=== PATIENT | female | born 1945 | race Two or more races ===

== ENCOUNTER 2017-06-30 08:21 | Day surgery (SDC) | payer MEDICARE, BC ==
[2017-06-15 10:11] VITALS: BMI 25.6
[2017-06-30] MEDS ORDERED: Midazolam 2 MG/2 ML VIAL ONE ×2 (09:58→10:01)
[2017-06-30] MEDS ORDERED: Propofol 10 mg/ml Inj (20 ML) ONE (09:58)
[2017-06-30] MEDS ORDERED: Lidocaine Hydrochloride 5 ML INJ ONE (10:00)
[2017-06-30] MEDS ORDERED: Neostigmine Methylsulfate 3mg/3ml Syringe IV ONE (10:14)
[2017-06-30] MEDS ORDERED: HYDROmorphone 0.5 mg/0.5 ml ISec IVP PRN (10:42)
[2017-06-30 12:32] VITALS: O2SAT 100
--- NOTE | 2017-06-30 12:36 | PCM.SURG1 ---
Surgeon's Initial Post Op Note - Surgeon's Notes Surgeon: Alma Mcnulty MD Supervisor Laboratory: none Type of Anesthesia: General LMA Pre-Operative Diagnosis: Post menopausal bleeding, history of bresat cancner Operative Findings: small anteverted uterus, 6cm, bilaterl ostia visluzed, small ciruclar type fere floatsing lesion removed, cervical stenosis, Post-Operative Diagnosis: same as above Operation Performed: Operative hyseroscopy, fractional diation and currettage Specimen/Specimens Removed: endocervical currettings, endometrial currettins, endometrial lesion Estimated Blood Loss: EBL {In ML}: 5 Blood Products Given: N/A Drains Used: No Drains Post-Op Condition: Good Date of Surgery/Procedure: 06/30/17 Time of Surgery/Procedure: 11:00
[2017-06-30 12:48] VITALS: BP 137/90; PULSE 63; RESP 18; TEMP 97
--- NOTE | 2017-07-01 02:57 | OP ---
PROCEDURE DATE: 06/30/2017 SURGEON: Alma Mcnulty MD FAMILY SERVICE ASSISTANT: None. TYPE OF ANESTHESIA: General LMA. PREOPERATIVE DIAGNOSIS: Postmenopausal bleeding, history of breast cancer. POSTOPERATIVE DIAGNOSIS: Postmenopausal bleeding, history of breast cancer. OPERATIVE FINDINGS: bilateral ostia visualized, . OPERATION PERFORMED: Operative hysteroscopy with fractional dilation and curettage. SPECIMENS: Endocervical curettings, endometrial curettings, and endometrial lesion. ESTIMATED BLOOD LOSS: 500 mL. BLOOD PRODUCTS: None. COMPLICATIONS: None. DESCRIPTION OF PROCEDURE: The patient was taken to the operating room where she was given general anesthesia and once it was found to be adequate, she was placed on the operating room table in a dorsal supine position with legs supported using stirrups. The patient was then prepped and draped in the usual sterile fashion. A time-out was confirmed correct patient and correct procedure. Endocervical curettings were obtained with a Kevorkian curette through the cervical stenosis and sent to pathology on [facility]. Following this, the cervix was sequentially dilated and uterus was found to be sounded to 5 cm. Following this, the cervix was sequentially dilated with a Holden dilator to allow for introduction of a 5 mm hysteroscope under direct visualization using normal saline as the distention media. There was a small free-floating lesion noted within the cavity that was isolated, removed and sent to pathology, and there was bilateral ostia visualized with no other gross masses. A gentle curettage was done with 360 degrees, specimen sent as endometrial curettings. All instruments were removed. There was good hemostasis noted. At the end of the procedure, all needle, sponge, and instrument counts were noted and correct x2. The patient tolerated the procedure well and was transferred to the recovery room in stable condition. Alma Mcnulty MD
== END 2017-06-30 13:32 | disposition home or self-care (01) ==
LOC: C.SDS 08:21
PROVIDERS: ATTEND Obstetrics & Gynecology
DX: N95.0 Postmenopausal bleeding (principal); Z85.3 Personal history of malignant neoplasm of breast; N85.8 Other specified noninflammatory disorders of uterus; E11.9 Type 2 diabetes mellitus without complications
CPT/HCPCS: 58558; 82948; 88305; J1100; J1885; J2250; J2405; J2704; J3010